=== PATIENT | male | born 2000 | race Caucasian/White ===

== ENCOUNTER 2019-05-03 11:35 | Emergency (ER) | payer OTHER ==
[~2019-05-03] VITALS: Ht 180.3 cm; Wt 69.0 kg
[2019-05-03] MEDS ORDERED: NAPROSYN500 MG PO (12:34)
[2019-05-03] MEDS ORDERED: AMOXICILLIN 50500 MG PO (12:34)
[2019-05-03 12:58] VITALS: BP 129/74
== END 2019-05-03 12:58 | disposition home or self-care (01) ==
LOC: ER 11:35
DX: K02.9 Dental caries, unspecified (principal)